=== PATIENT | female | born 1990 | race Caucasian/White ===

== ENCOUNTER 2016-12-26 22:14 | Emergency (ER) | payer SELFPAY ==
[~2016-12-26] VITALS: Ht 154.9 cm; Wt 59.5 kg
[~2016-12-26 22:14] MED LIST: ACET325T33 PO; ACET500C5 PO; BENZ100C70 PO; FERR27TA PO; IBUP-1542 PO; PREN1TAB49 PO; PROM6.25 PO
[2016-12-26 22:59] VITALS: Ht 154.9 cm; Wt 59.5 kg
== END 2016-12-27 03:39 | disposition left against medical advice (07) ==
LOC: FTE 22:14
DX: Z53.21 Procedure and treatment not carried out due to patient leaving prior to being seen by health care provider (principal)

== ENCOUNTER 2017-10-08 19:25 | Emergency (ER) | payer SELFPAY ==
[~2017-10-08] VITALS: Ht 162.6 cm; Wt 56.8 kg
[2017-10-08 19:50] VITALS: Ht 162.6 cm; Wt 56.8 kg
[2017-10-08 22:39] LABS: URINE BLOOD (Dip) POC Trace-intact (NEGATIVE)
[2017-10-08] MEDS ORDERED: PHEN-537 PO (23:19)
[2017-10-08] MEDS ORDERED: CEPH-443 PO (23:19)
--- NOTE | 2017-10-09 01:07 | ERD ---
ER Documentation Chief Complaint Chief Complaint painful urination, hematuria x 3days. No pain at this time HPI This is a 27-year-old female presents to the ER with urinary frequency, dysuria and hematuria present the last 6 days. Patient does admit to suprapubic pain. She denies any flank pain. She denies any fevers or chills. She denies nausea vomiting or diarrhea. She denies any vaginal discharge. ROS 12 point review of systems was done, all negative except per HPI. Medications Home Meds Active Scripts Phenazopyridine Hcl* (Pyridium*) 100 Mg Tab, 100 MG PO TID Y for URINARY PAIN, # 9 TAB Prov:CJ VARGAS 10/08/17 Cephalexin* (Keflex*) 500 Mg Capsule, 500 MG PO BID for 7 Days, CAP Prov:CJ VARGSA 10/08/17 Ibuprofen* (Ibuprofen*) 600 Mg Tablet, 600 MG PO Q6 for 3 Days, TAB Prov:CJ VARGAS 09/24/16 Benzonatate* (Tessalon Perle*) 100 Mg Capsule, 100 MG PO Q8H Y for COUGH, #30 CAP Prov:ELVIRA SANCHEZ PA-C 12/06/15 Promethazine w/Codeine* (Phenergan w/Codeine* Syrup) 5 Ml Syrup, 5 ML PO Q4H Y for COUGH, #100 ML Prov:ELVIRA SANCHEZ PA-C 12/06/15 Acetaminophen* (Tylenol*) 325 Mg Tablet, 2 TAB PO Q8 Y for PAIN AND OR ELEVATED TEMP, #20 TAB Prov:ELVIRA SANCHEZ PA-C 12/06/15 Ibuprofen* (Motrin*) 600 Mg Tab, 600 MG PO Q6, #30 TAB Prov:ELVIRA SANCHEZ PA-C 12/06/15 Acetaminophen* (Tylophen*) 500 Mg Capsule, 500 MG PO BID Y for PAIN, #30 TAB 0 Refills Prov:DEEPIKA CORDOVA PA-C 09/01/15 Reported Medications Ferrous Sulfate (Iron) 1 Tab Tablet, 1 TAB PO DAILY, #1 01/14/13 Vits W-Ca,Fe,Fa(<1MG) () 1 Tab Tablet, 1 TAB PO DAILY, #1 01/14/13 Allergies Allergies: Coded Allergies: No Known Drug Allergy (Verified Allergy, Unknown, 10/08/17) PMhx/Soc History of Surgery: No Anesthesia Reaction: No Hx Neurological Disorder: No Hx Respiratory Disorders: No Hx Cardiac Disorders: No Hx Psychiatric Problems: No Hx Miscellaneous Medical Probl: No Hx Alcohol Use: No Hx Substance Use: No Hx Tobacco Use: No Smoking Status: Never smoker Physical Exam Vitals Vital Signs Date Time Temp Pulse Resp B/P Pulse Ox O2 Delivery O2 Flow Rate FiO2 10/08/17 19:50 98.2 71 18 104/60 99 Physical Exam GENERAL: The patient is well developed and appropriate for usual state of health , in no apparent distress. HEENT: Atraumatic. . CHEST: Clear to auscultation bilaterally. There are no rales, wheezes or rhonchi. HEART: Regular rate and rhythm. No murmurs, clicks, rubs or gallops. ABDOMEN: Soft, nontender and nondistended. Good bowel sounds. No rebound or guarding. No gross peritonitis. No gross organomegaly or masses. No Cheng sign or McBurney point tenderness. Positive suprapubic tenderness BACK: No midline or flank tenderness. No CVA tenderness. SKIN: The skin is warm and dry. Results 24 hrs Laboratory Tests Test 10/08/17 22:40 Bedside Urine pH (LAB) 7.0 Bedside Urine Protein (LAB) Negative Bedside Urine Glucose (UA) Negative Bedside Urine Ketones (LAB) Negative Bedside Urine Blood Trace-intact Bedside Urine Nitrite (LAB) Negative Bedside Urine Leukocyte Esterase (L Trace Procedures/MDM This is a 27-year-old female that presents to the ER with urinary frequency and dysuria, patient will be treated for urinary tract infection secondary to her symptoms. Suspicion for pyelonephritis is low. Patient is afebrile and well- appearing. She will be sent home with Keflex. She is to follow-up with her primary care doctor within 1-2 days or return to ER sooner if symptoms worsen. My medical decision making shared with the patient she understands and agrees with plan. Departure Diagnosis: Primary Impression: UTI (urinary tract infection) Condition: Stable Patient Instructions: Understanding Urinary Tract Infections (UTIs) Additional Instructions: Call your primary care doctor TOMORROW for an appointment during the next 1-2 days.See the doctor sooner or return here if your condition worsens before your appointment time. CJ VARGAS Oct 09, 2017 01:07
== END 2017-10-08 23:25 | disposition home or self-care (01) ==
LOC: FTE 19:25
DX: N39.0 Urinary tract infection, site not specified (principal)
CPT/HCPCS: 81003; 99283

== ENCOUNTER 2018-09-07 16:13 | Emergency (ER) | END 2018-09-07 18:10 | disposition home or self-care (01) ==